=== PATIENT | female | born 1965 | race Caucasian/White ===

== ENCOUNTER 2017-07-09 18:37 | Emergency (ER) | payer MEDICARE, BC ==
--- NOTE | 2017-07-09 19:42 | EDM.PDOC ---
ED HPI GENERAL MEDICAL PROBLEM - General Chief Complaint: Diabetic Complaint Stated Complaint: HIGH BLOOD SUGAR Time Seen by Provider: 07/09/17 19:05 Source of Information: Reports: Patient History Limitations: Reports: No Limitations - History of Present Illness INITIAL COMMENTS - FREE TEXT/NARRATIVE: c/o BS 599 last A1C 9, gives herself Levemir 44u qhs and using sliding scale Humalog at 3u/carb during the day, does not eat bfast, gave herself 6u of Humalog at 2:15 PM, checked BS at 6p and it read 599, did not eat supper, did not give herself insulin, she called the Man RN who advised her to come to ED she reports some thirst and lighthead, slight nausea, no V, no pain PCP Karma, banking specialist Dr Hernandez from [facility] was last seen 1w ago, he placed a continuous glucose monitor which fell off yesterday, due to have it removed in 5d on home hemodialysis 4 days/wk x 1y for 2.5-3 hours each time, had been on peritoneal dialysis before that, has ESRD from DM - Related Data Allergies Allergy/AdvReac Type Severity Reaction Status Date / Time No Known Allergies Allergy Verified 09/19/15 07:15 Home Meds: Home Meds Aspirin [Adult Low Dose Aspirin EC] 81 mg PO DAILY 11/30/13 [History] Ferrous Gluconate 325 mg PO BID 11/30/13 [History] Insulin Detemir [Levemir Flexpen] 15 unit SQ BEDTIME 11/30/13 [History] Insulin Lispro [Humalog Kwikpen U-100] 100 unit SQ ASDIRECTED 11/30/13 [History] Lisinopril 10 mg PO DAILY 11/30/13 [History] Lovastatin [Mevacor] 40 mg PO DAILY 11/30/13 [History] Albuterol Sulfate [Proventil Hfa] 2 puff INH ASDIRECTED PRN 07/09/17 [History] Carvedilol [Carvedilol] 3.125 mg PO ASDIRECTED 07/09/17 [History] Furosemide [Furosemide] 40 mg PO ASDIRECTED 07/09/17 [History] Lutein/Minerals/Vit A,C & E [Ocuvite] 1 intnl unit PO DAILY 07/09/17 [History] Omeprazole [Omeprazole] 20 mg PO ASDIRECTED 07/09/17 [History] PARoxetine [Paxil] 20 mg PO DAILY 07/09/17 [History] Past Medical History HEENT History: Reports: Impaired Vision, Other (See Below) Other HEENT History: DIABETIC MACULAR EDEMA Cardiovascular History: Reports: High Cholesterol, Hypertension Respiratory History: Reports: Asthma, SOB Other Respiratory History: hx: smoking (stopped around 2013) Gastrointestinal History: Reports: Chronic Constipation Genitourinary History: Reports: Dialysis, Peritoneal, Renal Disease LOG HANDLER History: Reports: Musculoskeletal History: Reports: Back Pain, Chronic Other Musculoskeletal History: hx: LBP Neurological History: Reports: None Other Neuro History: Mother had Parkinson's Psychiatric History: Reports: Anxiety, Depression Endocrine/Metabolic History: Reports: Diabetes, Gestational, Diabetes, Type II Hematologic History: Reports: Anemia Immunologic History: Reports: None Oncologic (Cancer) History: Reports: None Dermatologic History: Reports: None - Infectious Disease History Infectious Disease History: Reports: Chicken Pox, Mumps, Shingles - Past Surgical History Cardiovascular Surgical History: Reports: Carotid Stents Respiratory Surgical History: Reports: None Female Surgical History: Reports: Section Neurological Surgical History: Reports: None Oncologic Surgical History: Reports: None Social & Family History - Family History Family Medical History: Noncontributory - Tobacco Use Smoking Status *Q: Former Smoker Years of Tobacco use: 20 Used Tobacco, but Quit: Yes Month Tobacco Last Used: march2014 Second Hand Smoke Exposure: No - Caffeine Use Caffeine Use: Reports: Tea - Alcohol Use Days Per Week of Alcohol Use: 2 Number of Drinks Per Day: 1 Total Drinks Per Week: 2 - Recreational Drug Use Recreational Drug Use: No ED ROS GENERAL - Review of Systems Review Of Systems: See Below Constitutional: Denies: Fever, Decreased Appetite HEENT: Reports: No Symptoms Respiratory: Reports: No Symptoms Cardiovascular: Reports: No Symptoms Endocrine: Reports: No Symptoms GI/Abdominal: Reports: Nausea : Reports: No Symptoms Musculoskeletal: Reports: No Symptoms Skin: Reports: No Symptoms Neurological: Reports: Dizziness Psychiatric: Reports: No Symptoms Hematologic/Lymphatic: Reports: No Symptoms Immunologic: Reports: No Symptoms ED EXAM GENERAL NO PERIP PULSE - Physical Exam Exam: See Below Exam Limited By: No Limitations General Appearance: Alert, WD/WN, No Apparent Distress, Other (conversant, nonill, moves easily) Throat/Mouth: Normal Inspection, Normal Lips, Normal Teeth, Normal Gums, Normal Oropharynx, Normal Voice, No Airway Compromise Head: Atraumatic, Normocephalic Neck: Normal Inspection, Supple, Non-Tender, Full Range of Motion Respiratory/Chest: No Respiratory Distress, Lungs Clear, Normal Breath Sounds, No Accessory Muscle Use, Chest Non-Tender Cardiovascular: Regular Rate, Rhythm, No Edema, No Gallop, No JVD, No Murmur, No Rub GI/Abdominal: Soft, Non-Tender Back Exam: Normal Inspection, Full Range of Motion, NT Extremities: Normal Inspection, Normal Range of Motion, Non-Tender, No Pedal Edema Neurological: Alert, Oriented, CN II-XII Intact, Normal Cognition, No Motor/ Sensory Deficits Psychiatric: Normal Affect, Normal Mood Lymphatic: No Adenopathy Course - Vital Signs Last Recorded V/S: Last Vital Signs Temp 36.6 C 07/09/17 18:50 Pulse 78 07/09/17 18:50 Resp 16 07/09/17 18:50 BP 118/97 H 07/09/17 18:50 Pulse Ox 100 07/09/17 18:50 - Orders/Labs/Meds Labs: Laboratory Tests 07/09/17 07/09/17 07/09/17 Range/Units 19:25 19:25 19:25 WBC 8.0 (4.5-12.0) X10-3/uL RBC 2.98 L (3.23-5.20) x10(6)uL Hgb 9.6 L (11.5-15.5) g/dL Hct 28.1 L (30.0-51.3) % MCV 94.5 (80-96) fL MCH 32.3 (27.7-33.6) pg MCHC 34.1 (32.2-35.4) g/dL RDW 15.3 (11.5-15.5) % Plt Count 314 (125-369) X10(3)uL MPV 7.9 (7.4-10.4) fL Neut % (Auto) 70.8 (46-82) % Lymph % (Auto) 21.0 (13-37) % [place] % (Auto) 4.8 (4-12) % Eos % (Auto) 3 (1.0-5.0) % Baso % (Auto) 1 (0-2) % Neut # (Auto) 5.7 (1.6-8.3) # Lymph # (Auto) 1.7 (0.6-5.0) # [place] # (Auto) 0.4 (0.0-1.3) # Eos # (Auto) 0.2 (0.0-0.8) # Baso # (Auto) 0.0 (0.0-0.2) # Sodium 133 L (135-145) mmol/L Potassium 4.9 (3.5-5.3) mmol/L Chloride 95 L (100-110) mmol/L Carbon Dioxide 26 (21-32) mmol/L BUN 42 H (7-18) mg/dL Creatinine 3.8 H* (0.55-1.02) mg/dL Est Cr Clr Drug Dosing 15.84 mL/min Estimated GFR (MDRD) 12 L (>60) BUN/Creatinine Ratio 11.1 (9-20) Glucose 617 H* (80-116) mg/dL Lactic Acid 1.5 (0.4-2.2) mmol/L Calcium 7.8 L (8.6-10.2) mg/dL Total Bilirubin 0.1 (0.1-1.3) mg/dL AST 19 (5-25) IU/L ALT 30 (12-36) U/L Alkaline Phosphatase 165 H (56-112) IU/L Total Protein 6.8 (6.0-8.0) g/dL Albumin 3.0 L (3.5-5.2) g/dL Globulin 3.8 g/dL Albumin/Globulin Ratio 0.8 - Re-Assessments/Exams Free Text/Narrative Re-Assessment/Exam: 07/09/17 20:07 bicarb and lactic acid both normal, no evidence of DKA pt reports does not use a sliding scale for glucose level, only for # of carbs then said that she saw Carissa 1m ago who advised her to adjust dose of Levemir from 44 go 52u qhs based on her qhs glucose, however she has not checked her qhs glucose since using the continuous glucose monitor Departure - Departure Time of Disposition: 20:09 Disposition: Home, Self-Care 01 Condition: Good Clinical Impression: Hyperglycemia - Discharge Information Instructions: Hyperglycemia Referrals: Karma Sparks NP [Primary Care Provider] - Forms: ED Department Discharge Additional Instructions: Give yourself 10 units of Humalog plus your usual 3 units/carb for your supper. Check your glucose one later and give yourself another 10 units if your glucose is over 400. Give yourself your regular dose of Levemir. Check your glucose in the morning. Call your doctor tomorrow regarding further adjustment in your insulin dose. Return to ED if you are feeling worse.
[2017-07-09 20:24] VITALS: BP 161/73
== END 2017-07-09 20:25 | disposition home or self-care (01) ==
LOC: FB.ED 18:37
DX: E11.65 Type 2 diabetes mellitus with hyperglycemia (principal); I10 Essential (primary) hypertension; E78.00 Pure hypercholesterolemia, unspecified; J45.909 Unspecified asthma, uncomplicated; F41.9 Anxiety disorder, unspecified; F32.9 Major depressive disorder, single episode, unspecified; Z87.891 Personal history of nicotine dependence; Z79.82 Long term (current) use of aspirin; Z79.899 Other long term (current) drug therapy
CPT/HCPCS: 36415; 80053; 83605; 85025; 99283

== ENCOUNTER 2018-12-22 07:14 | Day surgery (SDC) | payer MEDICARE, BC ==
[2018-12-22] MEDS ORDERED: Lactated Ringers 1,000 ML IV SCH (07:15)
[2018-12-22] MEDS ORDERED: Propofol 200 MG/20 ML SDV IV ONE (07:15)
[2018-12-22] MEDS ORDERED: Sodium Chloride 0.9% 10 ML Syringe FLUSH PRN (07:15)
--- NOTE | 2018-12-22 08:50 | PCM.OPNOTE ---
- General Post-Op/Procedure Note Date of Surgery/Procedure: 12/22/18 Operative Procedure(s): egd with bx Findings: gastroduodenitis Pre Op Diagnosis: globus pharyngeus Post-Op Diagnosis: gastroduodenitis Anesthesia Technique: KAYLYN Primary Surgeon: Clifton Cortes Anesthesia Provider: Alexandre Villatoro Pathology: stomach and duodenum Complications: None Condition: Good Free Text/Narrative:: see dictation
[2018-12-22 09:32] VITALS: BP 128/61; PULSE 63
--- NOTE | 2018-12-22 11:29 | OR ---
DATE OF OPERATION: 12/22/2018 SURGEON: Clifton Cortes MD PROCEDURE PERFORMED: EGD with cold forceps biopsy. PREOPERATIVE DIAGNOSIS: Globus pharyngeus. POSTOPERATIVE DIAGNOSIS: Gastroduodenitis, normal esophagus. INDICATIONS FOR PROCEDURE: This is a 53-year-old white female with a longstanding history of globus pharyngeus like symptoms that have gotten progressively worse recently. She was offered and accepted an EGD. DESCRIPTION OF OPERATION: After an excellent IV sedation was administered, bite block was inserted. Flexible endoscope was passed down the patient's esophagus into the stomach. The stomach was insufflated. Scope passed through the pylorus to the second portion of duodenum and slowly withdrawn. Following findings were noted: Duodenum, duodenitis. Biopsies were taken. Stomach, mild gastritis, especially in the antrum. Biopsies were taken. Remainder of the stomach was essentially unremarkable. GE junction was approximately 40 cm, did not demonstrate evidence of any erythema or irritation. The esophagus itself was essentially unremarkable. The stomach was deflated. The scope was removed. Biopsy results by letter. At this point, I would recommend the patient be referred to ENT. /[id number] /MODL
== END 2018-12-22 09:23 | disposition home or self-care (01) ==
LOC: FB.SDS 07:14
PROVIDERS: ATTEND Surgery
DX: K29.90 Gastroduodenitis, unspecified, without bleeding (principal); E11.43 Type 2 diabetes mellitus with diabetic autonomic (poly)neuropathy; E78.2 Mixed hyperlipidemia; E11.311 Type 2 diabetes mellitus with unspecified diabetic retinopathy with macular edema; I12.0 Hypertensive chronic kidney disease with stage 5 chronic kidney disease or end stage renal disease; E11.22 Type 2 diabetes mellitus with diabetic chronic kidney disease; N18.6 End stage renal disease; D63.1 Anemia in chronic kidney disease; E11.21 Type 2 diabetes mellitus with diabetic nephropathy; K21.9 Gastro-esophageal reflux disease without esophagitis; F41.9 Anxiety disorder, unspecified; F32.9 Major depressive disorder, single episode, unspecified; E66.9 Obesity, unspecified; Z68.31 Body mass index [BMI] 31.0-31.9, adult; Z79.899 Other long term (current) drug therapy; Z79.891 Long term (current) use of opiate analgesic; Z79.4 Long term (current) use of insulin
CPT/HCPCS: 00731; 43239; 82962; 88305; 88342; J2704; J7120

== ENCOUNTER 2019-04-16 08:32 | Emergency (ER) | payer MEDICARE, BC ==
[2019-04-16] MEDS: Naloxone 0.4 MG/ML SDV IVPUSH PRN ×2 (08:37→08:45)
[2019-04-16] MEDS ORDERED: Sodium Chloride 0.9% 1,000 ML IV ONE (08:40)
--- NOTE | 2019-04-16 08:53 | EDM.PDOC ---
ED HPI GENERAL MEDICAL PROBLEM - General Stated Complaint: UNRESPONSIVE Time Seen by Provider: 04/16/19 08:35 Source of Information: Reports: EMS, Family History Limitations: Reports: Uncooperative - History of Present Illness INITIAL COMMENTS - FREE TEXT/NARRATIVE: pt comes from home by EMS with stable vitals in unresponsive state, her tells me she was sitting on her chair and suddenly leaned backward and was not responding to him, tells me she has been doing fine prior to that and had uneventful night, denies noticing pain complaints , or GI sx, or seizures like movements, pt here she is still not responding to any verbal stimuli, put pulls extremities with pain, protecting airway, moves feet, and her CN are intact , breathing spontaneously, sats are nl , and perfusing well. - Related Data Allergies Allergy/AdvReac Type Severity Reaction Status Date / Time No Known Allergies Allergy Verified 12/22/18 08:01 Home Meds: Home Meds Aspirin [Adult Low Dose Aspirin EC] 81 mg PO DAILY 11/30/13 [History] Ferrous Gluconate 324 mg PO BID 11/30/13 [History] Lovastatin [Mevacor] 40 mg PO DAILY 11/30/13 [History] Albuterol Sulfate [Proventil Hfa] 2 puff INH Q6H PRN 07/09/17 [History] Furosemide 40 mg PO [id number] 07/09/17 [History] Omeprazole 20 mg PO DAILY 07/09/17 [History] carvediloL [Carvedilol] 3.125 mg PO BID 07/09/17 [History] Acetaminophen 325 mg PO Q6H PRN 12/21/18 [History] Bimatoprost [LUMIGAN 0.01% Ophth Soln] 1 drop EYEBOTH BEDTIME 12/21/18 [History] Calcium Acetate [PhosLo] 667 mg PO ASDIRECTED 12/21/18 [History] Cholecalciferol (Vitamin D3) [Vitamin D3] 2,000 unit PO WITHDINNER 12/21/18 [ History] Darbepoetin Woody in Polysorbat [Aranesp] 0 - 150 mcg IM ASDIRECTED 12/21/18 [ History] Docusate Sodium 100 mg PO TID 12/21/18 [History] Gabapentin [Neurontin] 100 mg PO BID 12/21/18 [History] Glucagon,Human Recombinant [Glucagon Emergency Kit] 1 mg IM ASDIRECTED PRN 12/21 [History] Insulin Aspart [NovoLOG] 4 unit SQ PCBREAKFAST 12/21/18 [History] Insulin Degludec [Tresiba Flextouch U-100] 28 unit SQ BEDTIME 12/21/18 [History] Lactulose 30 ml PO DAILY PRN 12/21/18 [History] Midodrine 5 mg PO ASDIRECTED PRN 12/21/18 [History] Mirtazapine [Remeron] 7.5 mg PO BEDTIME 12/21/18 [History] Multivitamin with Minerals [Multiple Vitamin] 1 tab PO DAILY 12/21/18 [History] Naltrexone 25 mg PO DAILY 12/21/18 [History] Nitroglycerin [Nitrostat] 0.4 mg SL ASDIRECTED 12/21/18 [History] Fabius-3/DHA/Epa/Fish Oil [Fabius 3 500 Softgel] 1,000 each PO BID 12/21/18 [ History] Polyethylene Glycol [Polyox Wsr-301] 1 pack PO BID PRN 12/21/18 [History] Topiramate [Topamax] 50 mg PO BID 12/21/18 [History] buPROPion [Wellbutrin SR] 150 mg PO DAILY 12/21/18 [History] rOPINIRole [Requip] 0.5 mg PO BID 12/21/18 [History] Calcitriol [Rocaltrol] 0.25 mcg PO MOWEFR 04/16/19 [History] Insulin Aspart [NovoLOG] 0 units SQ ASDIRECTED 04/16/19 [History] Insulin Aspart [NovoLOG] 5 units SQ ,04/16/19 [History] Melatonin 3 mg PO BEDTIME PRN 04/16/19 [History] ED ROS GENERAL - Review of Systems Review Of Systems: Unable To Obtain (pt is not responding.) Reason Not Obtained: altered mental status ED EXAM, GENERAL - Physical Exam Exam: See Below Exam Limited By: Uncooperative General Appearance: Alert Eye Exam: Bilateral Eye: Normal Inspection, PERRL Ears: Normal External Exam Nose: Normal Inspection. No: Nasal Flaring Throat/Mouth: Normal Inspection, Normal Oropharynx Head: Atraumatic, Normocephalic Neck: Normal Inspection, Supple, Non-Tender Respiratory/Chest: No Respiratory Distress, Lungs Clear, Normal Breath Sounds Cardiovascular: Normal Peripheral Pulses, Regular Rate, Rhythm, No JVD, No Murmur GI/Abdominal: Normal Bowel Sounds, Soft, Non-Tender, No Organomegaly, No Distention, No Abnormal Bruit Back Exam: Normal Inspection, Full Range of Motion Extremities: Normal Inspection, No Pedal Edema, Normal Capillary Refill Neurological: Alert, CN II-XII Intact, Normal Reflexes Skin Exam: Warm Course - Vital Signs Text/Narrative:: head ct shows no acute findings, EKG shows PVCs and no acute ST changes, trop is neg, CXR is clear , labs unremarkable except for elevated cr, K, and ddimer and mild elevation with liver enzymes . pt is fully alert and fully asymptomatic about 20-25 minutes into her arrival after 3 narcan. UDS was positive for oxycodone , but pt denies taking any of this medication or any other drugs. pt was monitored here for about 5 hrs and her condition remained stable, she has stable vitals, she is asymptomatic , ambulatory and stable for discharge home to preform her home dialysis. her ddimer is elevated on her labs but she does not have any signs clinically to suggest PE, no dyspnea or tachypnea , no chest pain, no leg swelling or pain , and sats are in high 90s on ra. pt was given calcium gluconate for her mild hyperkalemia. BS here prior to lunch were 80 . .. while pt is being monitored here, pt expressed right sided abd discomfort, tells me she had it twice this week, denies with it any other associated sx, report not having a BM x 2 days, labs including CBC, lipase UA were all unremarkable , i do feels this is a non specific pain likley related to GI tract spam, pt is medically stable to follow on this issue with PCP if it continue to be a recurrent problem. ... Dx. altered mental status , ? pseudoseizure, ? somatization disorder ? narcatics use. nonspecific abd pain with neg work-up, appear to be related to GI tract spasm. CRI, stable . hyperkalemia , mild, secondary to CRI. DM, stable. hx of CAD , stable. plan. DC home, home dialysis today, stool softeners, pt to follow with PCP on Friday for re-check. - Orders/Labs/Meds Orders: Active Orders 24 hr Category Date Time Status EKG Documentation Completion [RC] ASDIRECTED Care 04/16/19 08:56 Active Barr Catheter Insertion [Insert Urinary Catheter] [OM. Care 04/16/19 08:45 Ordered PC] Q24H Urinary Catheter Assessment [RC] QSHIFT Care 04/16/19 08:45 Active CXR [Chest 1V Frontal] [CR] Stat Exams 04/16/19 08:57 Taken Head wo Cont [CT] Stat Exams 04/16/19 08:48 Taken EKG 12 Lead [EK] Routine Ther 04/16/19 08:56 Ordered Labs: Laboratory Tests 04/16/19 04/16/19 04/16/19 Range/Units 08:48 08:48 08:48 WBC 9.3 (4.5-12.0) X10-3/uL RBC 3.67 (3.23-5.20) x10(6)uL Hgb 11.2 L (11.5-15.5) g/dL Hct 35.0 (30.0-51.3) % MCV 95.4 (80-96) fL MCH 30.4 (27.7-33.6) pg MCHC 31.8 L (32.2-35.4) g/dL RDW 13.6 (11.5-15.5) % Plt Count 285 (125-369) X10(3)uL MPV 8.2 (7.4-10.4) fL Neut % (Auto) 84.6 H (46-82) % Lymph % (Auto) 8.4 L (13-37) % [place] % (Auto) 6.0 (4-12) % Eos % (Auto) 1 (1.0-5.0) % Baso % (Auto) 0 (0-2) % Neut # (Auto) 7.8 (1.6-8.3) # Lymph # (Auto) 0.8 (0.6-5.0) # [place] # (Auto) 0.6 (0.0-1.3) # Eos # (Auto) 0.1 (0.0-0.8) # Baso # (Auto) 0.0 (0.0-0.2) # D-Dimer, Quantitative (0.0-0.59) mg/LFEU ABG pH (7.35-7.45) ABG pCO2 (35-45) mmHg ABG pO2 (83-108) mmHg ABG HCO3 (22-26) mmol/L ABG O2 Saturation (96-97) % ABG Base Excess (-2-2) Raoul Test O2 Delivery Device Sodium 143 (135-145) mmol/L Potassium 5.3 (3.5-5.3) mmol/L Chloride 105 (100-110) mmol/L Carbon Dioxide 25 (21-32) mmol/L BUN 73 H D (7-18) mg/dL Creatinine 5.0 H* (0.55-1.02) mg/dL Est Cr Clr Drug Dosing TNP Estimated GFR (MDRD) 9 L (>60) BUN/Creatinine Ratio 14.6 (9-20) Glucose 96 (80-116) mg/dL Lactic Acid (0.4-2.2) mmol/L Calcium 8.0 L (8.6-10.2) mg/dL Total Bilirubin 0.4 (0.1-1.3) mg/dL AST 41 H D (5-25) IU/L ALT 69 H D (12-36) U/L Alkaline Phosphatase 147 H (56-112) IU/L Troponin I < 0.017 L (<0.017-0.056) ng/mL Total Protein 7.4 (6.0-8.0) g/dL Albumin 3.4 L (3.5-5.2) g/dL Globulin 4.0 g/dL Albumin/Globulin Ratio 0.9 Amylase (25-115) U/L Lipase (73-393) U/L Urine Color (YELLOW) Urine Appearance (CLEAR) Urine pH (5.0-6.5) Ur Specific [place] (1.010-1.025) Urine Protein (NEGATIVE) mg/dL Urine Glucose (UA) (NORMAL) mg/dL Urine Ketones (NEGATIVE) mg/dL Urine Occult Blood (NEGATIVE) Urine Nitrite (NEGATIVE) Urine Bilirubin (NEGATIVE) Urine Urobilinogen (NEGATIVE) mg/dL Ur Leukocyte Esterase (NEGATIVE) Urine RBC (0-5) Urine WBC (0-5) Ur Squamous Epith Cells (NS,R,O) Urine Bacteria (NS) Urine Opiates Screen (NEGATIVE) Ur Oxycodone Screen (NEGATIVE) Ur Propoxyphene Screen (NEGATIVE) Ur Barbituates Screen (NEGATIVE) Ur Tricyclics Screen (NEGATIVE) Ur Phencyclidine Scrn (NEGATIVE) Ur Amphetamine Screen (NEGATIVE) Urine MDMA Screen (NEGATIVE) U Benzodiazepines Scrn (NEGATIVE) U Cocaine Metab Screen (NEGATIVE) U Marijuana (THC) Screen (NEGATIVE) 04/16/19 04/16/19 04/16/19 Range/Units 08:50 08:50 08:50 WBC (4.5-12.0) X10-3/uL RBC (3.23-5.20) x10(6)uL Hgb (11.5-15.5) g/dL Hct (30.0-51.3) % MCV (80-96) fL MCH (27.7-33.6) pg MCHC (32.2-35.4) g/dL RDW (11.5-15.5) % Plt Count (125-369) X10(3)uL MPV (7.4-10.4) fL Neut % (Auto) (46-82) % Lymph % (Auto) (13-37) % [place] % (Auto) (4-12) % Eos % (Auto) (1.0-5.0) % Baso % (Auto) (0-2) % Neut # (Auto) (1.6-8.3) # Lymph # (Auto) (0.6-5.0) # [place] # (Auto) (0.0-1.3) # Eos # (Auto) (0.0-0.8) # Baso # (Auto) (0.0-0.2) # D-Dimer, Quantitative (0.0-0.59) mg/LFEU ABG pH (7.35-7.45) ABG pCO2 (35-45) mmHg ABG pO2 (83-108) mmHg ABG HCO3 (22-26) mmol/L ABG O2 Saturation (96-97) % ABG Base Excess (-2-2) Raoul Test O2 Delivery Device Sodium (135-145) mmol/L Potassium (3.5-5.3) mmol/L Chloride (100-110) mmol/L Carbon Dioxide (21-32) mmol/L BUN (7-18) mg/dL Creatinine (0.55-1.02) mg/dL Est Cr Clr Drug Dosing Estimated GFR (MDRD) (>60) BUN/Creatinine Ratio (9-20) Glucose (80-116) mg/dL Lactic Acid 1.0 (0.4-2.2) mmol/L Calcium (8.6-10.2) mg/dL Total Bilirubin (0.1-1.3) mg/dL AST (5-25) IU/L ALT (12-36) U/L Alkaline Phosphatase (56-112) IU/L Troponin I (<0.017-0.056) ng/mL Total Protein (6.0-8.0) g/dL Albumin (3.5-5.2) g/dL Globulin g/dL Albumin/Globulin Ratio Amylase 38 (25-115) U/L Lipase 119 (73-393) U/L Urine Color (YELLOW) Urine Appearance (CLEAR) Urine pH (5.0-6.5) Ur Specific [place] (1.010-1.025) Urine Protein (NEGATIVE) mg/dL Urine Glucose (UA) (NORMAL) mg/dL Urine Ketones (NEGATIVE) mg/dL Urine Occult Blood (NEGATIVE) Urine Nitrite (NEGATIVE) Urine Bilirubin (NEGATIVE) Urine Urobilinogen (NEGATIVE) mg/dL Ur Leukocyte Esterase (NEGATIVE) Urine RBC (0-5) Urine WBC (0-5) Ur Squamous Epith Cells (NS,R,O) Urine Bacteria (NS) Urine Opiates Screen (NEGATIVE) Ur Oxycodone Screen (NEGATIVE) Ur Propoxyphene Screen (NEGATIVE) Ur Barbituates Screen (NEGATIVE) Ur Tricyclics Screen (NEGATIVE) Ur Phencyclidine Scrn (NEGATIVE) Ur Amphetamine Screen (NEGATIVE) Urine MDMA Screen (NEGATIVE) U Benzodiazepines Scrn (NEGATIVE) U Cocaine Metab Screen (NEGATIVE) U Marijuana (THC) Screen (NEGATIVE) 04/16/19 04/16/19 04/16/19 Range/Units 09:00 09:00 09:15 WBC (4.5-12.0) X10-3/uL RBC (3.23-5.20) x10(6)uL Hgb (11.5-15.5) g/dL Hct (30.0-51.3) % MCV (80-96) fL MCH (27.7-33.6) pg MCHC (32.2-35.4) g/dL RDW (11.5-15.5) % Plt Count (125-369) X10(3)uL MPV (7.4-10.4) fL Neut % (Auto) (46-82) % Lymph % (Auto) (13-37) % [place] % (Auto) (4-12) % Eos % (Auto) (1.0-5.0) % Baso % (Auto) (0-2) % Neut # (Auto) (1.6-8.3) # Lymph # (Auto) (0.6-5.0) # [place] # (Auto) (0.0-1.3) # Eos # (Auto) (0.0-0.8) # Baso # (Auto) (0.0-0.2) # D-Dimer, Quantitative 1.00 H (0.0-0.59) mg/LFEU ABG pH (7.35-7.45) ABG pCO2 (35-45) mmHg ABG pO2 (83-108) mmHg ABG HCO3 (22-26) mmol/L ABG O2 Saturation (96-97) % ABG Base Excess (-2-2) Raoul Test O2 Delivery Device Sodium (135-145) mmol/L Potassium (3.5-5.3) mmol/L Chloride (100-110) mmol/L Carbon Dioxide (21-32) mmol/L BUN (7-18) mg/dL Creatinine (0.55-1.02) mg/dL Est Cr Clr Drug Dosing Estimated GFR (MDRD) (>60) BUN/Creatinine Ratio (9-20) Glucose (80-116) mg/dL Lactic Acid (0.4-2.2) mmol/L Calcium (8.6-10.2) mg/dL Total Bilirubin (0.1-1.3) mg/dL AST (5-25) IU/L ALT (12-36) U/L Alkaline Phosphatase (56-112) IU/L Troponin I (<0.017-0.056) ng/mL Total Protein (6.0-8.0) g/dL Albumin (3.5-5.2) g/dL Globulin g/dL Albumin/Globulin Ratio Amylase (25-115) U/L Lipase (73-393) U/L Urine Color Yellow (YELLOW) Urine Appearance Clear (CLEAR) Urine pH 7.0 H (5.0-6.5) Ur Specific [place] 1.005 L (1.010-1.025) Urine Protein 30 H (NEGATIVE) mg/dL Urine Glucose (UA) Normal (NORMAL) mg/dL Urine Ketones Negative (NEGATIVE) mg/dL Urine Occult Blood Negative (NEGATIVE) Urine Nitrite Negative (NEGATIVE) Urine Bilirubin Negative (NEGATIVE) Urine Urobilinogen Normal (NEGATIVE) mg/dL Ur Leukocyte Esterase Negative (NEGATIVE) Urine RBC 0-5 (0-5) Urine WBC Not seen (0-5) Ur Squamous Epith Cells Few H (NS,R,O) Urine Bacteria Not seen (NS) Urine Opiates Screen Negative (NEGATIVE) Ur Oxycodone Screen Positive H (NEGATIVE) Ur Propoxyphene Screen Negative (NEGATIVE) Ur Barbituates Screen Negative (NEGATIVE) Ur Tricyclics Screen Negative (NEGATIVE) Ur Phencyclidine Scrn Negative (NEGATIVE) Ur Amphetamine Screen Negative (NEGATIVE) Urine MDMA Screen Negative (NEGATIVE) U Benzodiazepines Scrn Negative (NEGATIVE) U Cocaine Metab Screen Negative (NEGATIVE) U Marijuana (THC) Screen Negative (NEGATIVE) 04/16/19 Range/Units 09:15 WBC (4.5-12.0) X10-3/uL RBC (3.23-5.20) x10(6)uL Hgb (11.5-15.5) g/dL Hct (30.0-51.3) % MCV (80-96) fL MCH (27.7-33.6) pg MCHC (32.2-35.4) g/dL RDW (11.5-15.5) % Plt Count (125-369) X10(3)uL MPV (7.4-10.4) fL Neut % (Auto) (46-82) % Lymph % (Auto) (13-37) % [place] % (Auto) (4-12) % Eos % (Auto) (1.0-5.0) % Baso % (Auto) (0-2) % Neut # (Auto) (1.6-8.3) # Lymph # (Auto) (0.6-5.0) # [place] # (Auto) (0.0-1.3) # Eos # (Auto) (0.0-0.8) # Baso # (Auto) (0.0-0.2) # D-Dimer, Quantitative (0.0-0.59) mg/LFEU ABG pH 7.35 (7.35-7.45) ABG pCO2 39 (35-45) mmHg ABG pO2 54 L (83-108) mmHg ABG HCO3 21 L (22-26) mmol/L ABG O2 Saturation 86 L (96-97) % ABG Base Excess -3.7 L (-2-2) Raoul Test Passed O2 Delivery Device Room air Sodium (135-145) mmol/L Potassium (3.5-5.3) mmol/L Chloride (100-110) mmol/L Carbon Dioxide (21-32) mmol/L BUN (7-18) mg/dL Creatinine (0.55-1.02) mg/dL Est Cr Clr Drug Dosing Estimated GFR (MDRD) (>60) BUN/Creatinine Ratio (9-20) Glucose (80-116) mg/dL Lactic Acid (0.4-2.2) mmol/L Calcium (8.6-10.2) mg/dL Total Bilirubin (0.1-1.3) mg/dL AST (5-25) IU/L ALT (12-36) U/L Alkaline Phosphatase (56-112) IU/L Troponin I (<0.017-0.056) ng/mL Total Protein (6.0-8.0) g/dL Albumin (3.5-5.2) g/dL Globulin g/dL Albumin/Globulin Ratio Amylase (25-115) U/L Lipase (73-393) U/L Urine Color (YELLOW) Urine Appearance (CLEAR) Urine pH (5.0-6.5) Ur Specific [place] (1.010-1.025) Urine Protein (NEGATIVE) mg/dL Urine Glucose (UA) (NORMAL) mg/dL Urine Ketones (NEGATIVE) mg/dL Urine Occult Blood (NEGATIVE) Urine Nitrite (NEGATIVE) Urine Bilirubin (NEGATIVE) Urine Urobilinogen (NEGATIVE) mg/dL Ur Leukocyte Esterase (NEGATIVE) Urine RBC (0-5) Urine WBC (0-5) Ur Squamous Epith Cells (NS,R,O) Urine Bacteria (NS) Urine Opiates Screen (NEGATIVE) Ur Oxycodone Screen (NEGATIVE) Ur Propoxyphene Screen (NEGATIVE) Ur Barbituates Screen (NEGATIVE) Ur Tricyclics Screen (NEGATIVE) Ur Phencyclidine Scrn (NEGATIVE) Ur Amphetamine Screen (NEGATIVE) Urine MDMA Screen (NEGATIVE) U Benzodiazepines Scrn (NEGATIVE) U Cocaine Metab Screen (NEGATIVE) U Marijuana (THC) Screen (NEGATIVE) Meds: Medications Discontinued Medications Generic Name Dose Route Start Last Admin Trade Name Freq PRN Reason Stop Dose Admin Acetaminophen 650 mg 04/16/19 13:41 04/16/19 14:24 Tylenol PO 04/16/19 13:42 325 mg NOW ONE Administration Calcium Gluconate 1 gm 04/16/19 09:16 04/16/19 09:22 Calcium Gluconate IVPUSH 04/16/19 09:17 1 gm ONETIME ONE Administration Sodium Chloride 1,000 mls @ 999 mls/hr 04/16/19 08:40 04/16/19 08:45 Normal Saline IV 04/16/19 09:40 999 mls/hr .BOLUS ONE Administration Naloxone HCl 0.4 mg 04/16/19 08:32 04/16/19 08:45 Narcan IVPUSH 0.4 mg ASDIRECTED PRN Administration Other Naloxone HCl 0.4 mg 04/16/19 09:38 04/16/19 09:35 Narcan IVPUSH 04/16/19 09:39 0.4 mg ONETIME STA Administration Departure - Departure Time of Disposition: 14:47 Disposition: Home, Self-Care 01 Clinical Impression: Altered mental status - Discharge Information Referrals: PCP,None [Primary Care Provider] - Sepsis Event Note - Focused Exam Date Exam was Performed: 04/16/19 Time Exam was Performed: 14:41 - My Orders Last 24 Hours: My Active Orders 04/16/19 08:45 Barr Catheter Insertion [Insert Urinary Catheter] [OM.PC] Q24H Urinary Catheter Assessment [RC] QSHIFT 04/16/19 08:48 Head wo Cont [CT] Stat 04/16/19 08:56 EKG Documentation Completion [RC] ASDIRECTED EKG 12 Lead [EK] Routine 04/16/19 08:57 CXR [Chest 1V Frontal] [CR] Stat - Assessment/Plan Last 24 Hours: My Active Orders 04/16/19 08:45 Barr Catheter Insertion [Insert Urinary Catheter] [OM.PC] Q24H Urinary Catheter Assessment [RC] QSHIFT 04/16/19 08:48 Head wo Cont [CT] Stat 04/16/19 08:56 EKG Documentation Completion [RC] ASDIRECTED EKG 12 Lead [EK] Routine 04/16/19 08:57 CXR [Chest 1V Frontal] [CR] Stat
[2019-04-16] MEDS ORDERED: Calcium Gluconate 10% 1 GM/10 ML SDV IVPUSH ONE (09:16)
[2019-04-16] MEDS ORDERED: Naloxone 0.4 MG/ML SDV IVPUSH STA (09:38)
[2019-04-16] MEDS ORDERED: Acetaminophen 325 MG Tab PO ONE ×2 (13:41→20:00)
[2019-04-16 14:52] VITALS: BP 130/70; PULSE 70
== END 2019-04-16 15:15 | disposition home or self-care (01) ==
LOC: EDBD → EDUNIT# → FB.ED 08:32
DX: R41.82 Altered mental status, unspecified (principal); E11.22 Type 2 diabetes mellitus with diabetic chronic kidney disease; N18.6 End stage renal disease; E87.5 Hyperkalemia; I25.10 Atherosclerotic heart disease of native coronary artery without angina pectoris; R10.9 Unspecified abdominal pain; Z79.82 Long term (current) use of aspirin; Z79.899 Other long term (current) drug therapy; Z79.4 Long term (current) use of insulin; Z99.2 Dependence on renal dialysis
CPT/HCPCS: 36600; 51702; 70450; 71045; 80053; 80305-QW; 81001; 82150; 82803; 83605; 83690; 84484; 85025; 85379; 93005; 93010; 96361; 96374; 96375; 96376; 99284; 99285-25; A9270-GY; J0610; J2310; J7030

== ENCOUNTER 2019-11-23 11:32 | Emergency (ER) | payer MEDICARE, BC ==
--- NOTE | 2019-11-23 13:15 | EDM.PDOC ---
ED HPI GENERAL MEDICAL PROBLEM - General Stated Complaint: low blood sugar Time Seen by Provider: 11/23/19 13:30 Source of Information: Reports: Patient, EMS History Limitations: Reports: No Limitations - History of Present Illness INITIAL COMMENTS - FREE TEXT/NARRATIVE: Patient presented to the ED because of a hypoglycemic episode. She checked he BS this morning and it was less than 40. She was a little bit confused and have headache. Darian took a glass of regular Mountain Dew and glucose tabs prior to going to the ED. She mentioned that she at least have 2 hypoglycemic episode each week. She is on Tresiba 28 U QHS and Novolog 5 U QAC and QHS. - Related Data Allergies Allergy/AdvReac Type Severity Reaction Status Date / Time No Known Allergies Allergy Verified 12/22/18 08:01 Home Meds: Home Meds Aspirin [Adult Low Dose Aspirin EC] 81 mg PO DAILY 11/30/13 [History] Ferrous Gluconate 324 mg PO BID 11/30/13 [History] Lovastatin [Mevacor] 40 mg PO DAILY 11/30/13 [History] Albuterol Sulfate [Proventil Hfa] 2 puff INH Q6H PRN 07/09/17 [History] Furosemide 40 mg PO [id number] 07/09/17 [History] Omeprazole 20 mg PO DAILY 07/09/17 [History] carvediloL [Carvedilol] 3.125 mg PO BID 07/09/17 [History] Acetaminophen 325 mg PO Q6H PRN 12/21/18 [History] Bimatoprost [LUMIGAN 0.01% Ophth Soln] 1 drop EYEBOTH BEDTIME 12/21/18 [History] Calcium Acetate [PhosLo] 667 mg PO ASDIRECTED 12/21/18 [History] Cholecalciferol (Vitamin D3) [Vitamin D3] 2,000 unit PO WITHDINNER 12/21/18 [History] Darbepoetin Woody in Polysorbat [Aranesp] 0 - 150 mcg IM ASDIRECTED 12/21/18 [History] Docusate Sodium 100 mg PO TID 12/21/18 [History] Gabapentin [Neurontin] 100 mg PO BID 12/21/18 [History] Glucagon,Human Recombinant [Glucagon Emergency Kit] 1 mg IM ASDIRECTED PRN 12/21/18 [History] Insulin Aspart [NovoLOG] 4 unit SQ PCBREAKFAST 12/21/18 [History] Insulin Degludec [Tresiba Flextouch U-100] 28 unit SQ BEDTIME 12/21/18 [History] Lactulose 30 ml PO DAILY PRN 12/21/18 [History] Midodrine 5 mg PO ASDIRECTED PRN 12/21/18 [History] Mirtazapine [Remeron] 7.5 mg PO BEDTIME 12/21/18 [History] Multivitamin with Minerals [Multiple Vitamin] 1 tab PO DAILY 12/21/18 [History] Naltrexone 25 mg PO DAILY 12/21/18 [History] Nitroglycerin [Nitrostat] 0.4 mg SL ASDIRECTED 12/21/18 [History] [place]-3/DHA/Epa/Fish Oil [[place] 3 500 Softgel] 1,000 each PO BID 12/21/18 [History] Polyethylene Glycol [Polyox Wsr-301] 1 pack PO BID PRN 12/21/18 [History] Topiramate [Topamax] 50 mg PO BID 12/21/18 [History] buPROPion [Wellbutrin SR] 150 mg PO DAILY 12/21/18 [History] rOPINIRole [Requip] 0.5 mg PO BID 12/21/18 [History] Insulin Aspart [NovoLOG] 0 units SQ ASDIRECTED 04/16/19 [History] Insulin Aspart [NovoLOG] 5 units SQ ,04/16/19 [History] Melatonin 3 mg PO BEDTIME PRN 04/16/19 [History] calcitrioL [Rocaltrol] 0.25 mcg PO MOWEFR 04/16/19 [History] Past Medical History HEENT History: Reports: Cataract, Impaired Vision, Macular Degeneration, Other (See Below) Other HEENT History: DIABETIC MACULAR EDEMA Cardiovascular History: Reports: CAD, High Cholesterol, Hypertension, IA Respiratory History: Reports: Asthma, SOB Other Respiratory History: hx: smoking (stopped around 2013) Gastrointestinal History: Reports: Chronic Constipation Genitourinary History: Reports: Dialysis, Dialysis, Peritoneal, Renal Disease [employer] History: Reports: Musculoskeletal History: Reports: Back Pain, Chronic Other Musculoskeletal History: hx: LBP Neurological History: Reports: None Other Neuro History: Mother had Parkinson's Psychiatric History: Reports: Anxiety, Depression Endocrine/Metabolic History: Reports: Diabetes, Gestational, Diabetes, Type II, Obesity/BMI 30+ Hematologic History: Reports: Anemia Immunologic History: Reports: None Oncologic (Cancer) History: Reports: None Dermatologic History: Reports: None - Infectious Disease History Infectious Disease History: Reports: Chicken Pox, Mumps, Shingles - Past Surgical History HEENT Surgical History: Reports: None, Cataract Surgery, Oral Surgery Cardiovascular Surgical History: Reports: Carotid Stents Respiratory Surgical History: Reports: None GI Surgical History: Reports: Appendectomy, Colonoscopy, Hernia Repair/Other Female Surgical History: Reports: Section, D&C Endocrine Surgical History: Reports: None Neurological Surgical History: Reports: None Musculoskeletal Surgical History: Reports: None Oncologic Surgical History: Reports: None Social & Family History - Family History Family Medical History: Noncontributory - Caffeine Use Caffeine Use: Reports: None ED ROS GENERAL - Review of Systems Review Of Systems: See Below Constitutional: Reports: No Symptoms HEENT: Reports: No Symptoms Respiratory: Reports: No Symptoms Cardiovascular: Reports: No Symptoms Endocrine: Reports: No Symptoms GI/Abdominal: Reports: No Symptoms : Reports: No Symptoms Musculoskeletal: Reports: No Symptoms Skin: Reports: No Symptoms Neurological: Reports: No Symptoms Psychiatric: Reports: No Symptoms ED EXAM, GENERAL - Physical Exam Exam: See Below Exam Limited By: No Limitations General Appearance: Alert, No Apparent Distress Eye Exam: Bilateral Eye: PERRL Ears: Normal External Exam, Normal Canal Nose: Normal Inspection, Normal Mucosa Throat/Mouth: Normal Inspection, Normal Lips, Normal Teeth Head: Atraumatic, Normocephalic, Facial Swelling Neck: Normal Inspection, Supple, Non-Tender, Full Range of Motion Respiratory/Chest: No Respiratory Distress, Lungs Clear, Normal Breath Sounds Cardiovascular: Normal Peripheral Pulses, Regular Rate, Rhythm, No Edema, No Gallop GI/Abdominal: Normal Bowel Sounds, Soft, Non-Tender, No Organomegaly Back Exam: Normal Inspection, Full Range of Motion Extremities: Normal Inspection, Normal Range of Motion, Non-Tender Neurological: Alert, Oriented, CN II-XII Intact, Normal Cognition, Normal Gait Course - Vital Signs Text/Narrative:: labs reviewed and discussed with patient and verbalized full understanding [id number] prior to discharge Last Recorded V/S: Last Vital Signs Temp 36.8 C 11/23/19 13:35 Pulse 78 11/23/19 13:35 Resp 16 11/23/19 13:35 BP 141/52 H 11/23/19 13:35 Pulse Ox 98 11/23/19 13:35 - Orders/Labs/Meds Labs: Laboratory Tests 11/23/19 11/23/19 Range/Units 12:36 12:36 WBC 11.6 (4.5-12.0) X10-3/uL RBC 3.34 (3.23-5.20) x10(6)uL Hgb 10.3 L (11.5-15.5) g/dL Hct 31.9 (30.0-51.3) % MCV 95.4 (80-96) fL MCH 30.9 (27.7-33.6) pg MCHC 32.4 (32.2-35.4) g/dL RDW 12.8 (11.5-15.5) % Plt Count 232 (125-369) X10(3)uL MPV 7.4 (7.4-10.4) fL Neut % (Auto) 84.4 H (46-82) % Lymph % (Auto) 7.4 L (13-37) % Falls % (Auto) 5.8 (4-12) % Eos % (Auto) 1 (1.0-5.0) % Baso % (Auto) 2 (0-2) % Neut # (Auto) 9.7 H (1.6-8.3) # Lymph # (Auto) 0.9 (0.6-5.0) # Falls # (Auto) 0.7 (0.0-1.3) # Eos # (Auto) 0.1 (0.0-0.8) # Baso # (Auto) 0.2 (0.0-0.2) # Sodium 139 (135-145) mmol/L Potassium 4.4 (3.5-5.3) mmol/L Chloride 102 (100-110) mmol/L Carbon Dioxide 28 (21-32) mmol/L BUN 46 H D (7-18) mg/dL Creatinine 4.1 H* (0.55-1.02) mg/dL Est Cr Clr Drug Dosing TNP Estimated GFR (MDRD) 11 L (>60) BUN/Creatinine Ratio 11.2 (9-20) Glucose 128 H (80-116) mg/dL Calcium 7.9 L (8.6-10.2) mg/dL Departure - Departure Time of Disposition: 13:15 Disposition: Home, Self-Care 01 Condition: Good Clinical Impression: Hypoglycemia - Discharge Information Instructions: Hypoglycemia, [id number] Referrals: Karma Sparks NP [Primary Care Provider] - Additional Instructions: Please read discharge instructions on hypoglycemia Do not take your bed time dose of insulin until you are seen by your community health planning director
[2019-11-23 22:01] VITALS: BP 141/52; PULSE 78
== END 2019-11-23 13:35 | disposition home or self-care (01) ==
LOC: FB.ED 11:32
DX: E11.649 Type 2 diabetes mellitus with hypoglycemia without coma (principal); I10 Essential (primary) hypertension; E78.00 Pure hypercholesterolemia, unspecified; E66.9 Obesity, unspecified; F41.9 Anxiety disorder, unspecified; F32.9 Major depressive disorder, single episode, unspecified; J45.909 Unspecified asthma, uncomplicated; I25.10 Atherosclerotic heart disease of native coronary artery without angina pectoris; Z79.4 Long term (current) use of insulin; Z79.82 Long term (current) use of aspirin; Z79.899 Other long term (current) drug therapy
CPT/HCPCS: 36415; 80048; 85025; 99285